=== PATIENT | female | born 1990 | race Caucasian/White ===

== ENCOUNTER 2016-04-21 10:20 | Inpatient (IN) | payer MEDICAID ==
[2015-09-01 19:35] VITALS: BMI 21.7
[2016-04-21] MEDS ORDERED: ONDANSETRON HCL 4 MG/2 ML VIAL IV ONE (10:53)
[2016-04-21] MEDS ORDERED: BUPIVACAINE 0.75%/DEXTROSE 8.25% AMPULE EPI ONE (10:53)
[2016-04-21] MEDS ORDERED: BUTORPHANOL 1 MG/ML VIAL IV PRN (11:11)
[2016-04-21] MEDS ORDERED: LR 500 ML IV PRN (11:11)
[2016-04-21 11:19] LABS: AUTOMATED BASOPHIL 0.1 % (0-2); AUTOMATED EOSINOPHIL 0.9 % (0-5); AUTOMATED LYMPH 11.4 % (17-44); AUTOMATED MONOCYTE 8.2 % (3-10); AUTOMATED NEUTROPHIL 79.4 % (45-76); MPV 7.7 fL (7.4-10.4)
[2016-04-21] MEDS ORDERED: OXYTOCIN 1,000 ML IV ONE ×2 (11:25→14:08)
[2016-04-21] MEDS ORDERED: LIDOCAINE 1% 30 ML VIAL (PRESERVATIVE FREE) ONE (11:25)
[2016-04-21] MEDS ORDERED: Vaccine Screening Complete SCH (12:00)
[2016-04-21] MEDS ORDERED: AMPICILLIN 2 GM in NS 100 ML IV ONE (12:00)
[2016-04-21] MEDS ORDERED: LR 1,000 ML IV SCH ×2 (12:00→13:00)
[2016-04-21] MEDS ORDERED: ONDANSETRON HCL 4 MG ODT TAB PO PRN (12:12)
[2016-04-21] MEDS ORDERED: LABETALOL 20 MG/4 ML SYRINGE IV PRN (12:12)
[2016-04-21] MEDS ORDERED: ONDANSETRON HCL 4 MG/2 ML VIAL IV PRN ×2 (12:12→14:08)
[2016-04-21] MEDS ORDERED: HYDROmorphone 1 MG INJECTION IV PRN ×2 (12:12)
[2016-04-21] MEDS ORDERED: hydrALAZINE 20 MG/ML VIAL IV PRN (12:12)
[2016-04-21] MEDS ORDERED: MEPERIDINE 25 MG/ML TUBEX IV PRN (12:12)
[2016-04-21] MEDS ORDERED: FENTANYL 100 MCG/2 ML VIAL IV PRN ×2 (12:12)
[2016-04-21] MEDS ORDERED: PROMETHAZINE 25 MG/ML VIAL IV PRN ×2 (12:12)
--- NOTE | 2016-04-21 12:12 | HISTPHYS ---
- HISTORY OF PRESENT ILLNESS Age: 26 Estimated Due Date: 05/09/16 Gestational Age: 37 : 1 Para: 0 Patient Presents to:: Labor & Delivery Presents for:: Leaking Fluid Current : No Complications, GBS + - REVIEW OF SYSTEMS Reports/Denies: Reports: Contractions, Leaking Fluid Pain: Reports: None - ALLERGIES Allergies Allergy/AdvReac Type Severity Reaction Status Date / Time No Known Allergies Allergy Verified 04/21/16 10:32 - CURRENT MEDICATIONS Home Medication List Vits W-Ca,Fe,FA(<1Mg) [] 1 each PO DIR 04/21/16 [History] - PAST MEDICAL HISTORY Reports: No Significant History - PAST SURGICAL HISTORY Reports: None - FAMILY HISTORY Family History: Noncontributory - SOCIAL HISTORY Smoking Status: Never smoker Marital Status: Employment: Employed - GENITOURINARY HISTORY HX : 1 Para: 0 Live Deliveries (# of pregnancies resulting in a live ): 0 - PHYSICAL EXAM Vital Signs:: Temperature: 97.6 F (04/21/16 10:36) HR: 117 (04/21/16 10:36) RR: 16 (04/21/16 10:36) BP: 140/90 (04/21/16 10:36) Pulse Ox: () GENERAL: Alert, Oriented, No Acute Distress HEENT: Normal CARDOVASCULAR/CHEST: Normal RESPIRATORY: Normal - CTA ABDOMEN: Gravid, Non-Tender, Soft Fundal Height (cm): 38 GENITOURINARY: Normal. negative: Lesions MUSCULOSKELETAL: Normal EXTERMITIES: Moves All Extremeties Dilation (cm): 1 Effacement (%): 25 Station: -3 Heart Rate: 145 Reactive Contractions: Irregular Membranes: SROM Amniotic Fluid: Clear - ASSESSMENT (ACTIVE PROBLEMS) (1) Term Acute Z34.80 - ENCOUNTER FOR SUPRVSN OF NORMAL , UNSP TRIMESTER (2) Active labor at term Acute [id number] - (3) Breech presentation of fetus Acute O32.1XX0 - MATERNAL CARE FOR BREECH PRESENTATION, UNSP - PLAN Admit Other Plan: 26 yo G1 at term presents with srom, in early labor. Exam reveals breech presentation. Discussed with patient finding and recommendation for LTCS. Will notify anesthesia, peds and proceed with plan.
--- NOTE | 2016-04-21 12:13 | SC.ANESPOS ---
Post-Anesthesia Note LOC: Fully Awake Post-Anesthesia Assessment: Awake, Returned to Baseline, Hemodynamically Stable , Pain Control Adequate Phase I & II Recovery Complete: Yes Apparent Anesthesia Complication: No : N - Vital Signs Blood Pressure: 140/90 Pulse: 117 Resp Rate: 16 Temp: 97.6 F
--- NOTE | 2016-04-21 12:13 | HIM.ANES ---
Anesthesia Evaluation & Plan - Focused Review of Systems Cardiac History: Yes: Hx Heart Murmur (since ), Hx Cardiac Disorders HEENT: Yes: Other HEENT Problems No: Hx Hearing Impairment, Cataracts, Cataract Removal, Glaucoma, Macular Degeneration, Hx Dysphagia, Temporomandibular Joint Disease (TMJ), Hx Deviated Septum, Hx Vision Problem, Hx Ear Problem Hx Other HEENT Problems: glasses Gastrointestinal: No: Hx Gastrointestinal Disorders Neurological/Musculoskeletal: No: Hx Neurological Disorders Psychological: Yes Hx Anxiety, No Hx Depression, Yes Hx Mental/Emotional Disorders, No Hx Bipolar Disorder Blood/Autoimmune: No: Hx Blood Transfusions, Hx Anemia, Hx AIDS, Hx Sickle Cell Disease Smoking Status: Never smoker Past Social History: Denies: Alcohol Use Surgical History: Yes: T&A No: Nasal - Focused Physical Exam Mallampati: Class II Thyromental Distance: Greater than 3 Cardiovascular/Chest: Normal Respiratory: Lungs clear Any problems with anesthesia, including nausea and vomiting?: No Any relatives with a history of Malignant Hyperthermia?: No Beta Milka given (if appropriate): N/A Other: CBC/BMP/Other 04/21/16 10:40 Allergies Allergy/AdvReac Type Severity Reaction Status Date / Time No Known Allergies Allergy Verified 04/21/16 10:32 Home Medications Medication Instructions Recorded Last Taken Type Vits W-Ca,Fe,FA(<1Mg) 1 each PO DIR 04/21/16 04/20/16 22:00 History [] Height and Weight Patient's height 5 ft 2 in Patient's weight 156 lb BMI 21.7 Vital Signs Temperature 97.6 F 04/21/16 12:13 Pulse Rate 117 04/21/16 12:13 Respiratory Rate 16 04/21/16 12:13 Blood Pressure 140/90 04/21/16 12:13 Pulse Oxygen Saturation - Anesthetic Plan Anesthesia Type: Spinal ASA Class: 2, E -: I have examined this patient and reviewed the medical record. The patient has been assessed prior to anesthesia. Risks and benefits of anesthesia and anesthetic technique options have been discussed and all questions answered. The patient accepts the risk and desires me to proceed with the planned anesthetic.
[2016-04-21] MEDS ORDERED: CEFAZOLIN 1 GM VIAL IV ONE (12:15)
[2016-04-21] MEDS ORDERED: LR 1,500 ML IV ONE (12:15)
[2016-04-21] MEDS ORDERED: FENTANYL 100 MCG/2 ML VIAL ONE (13:35)
[2016-04-21] MEDS ORDERED: LANOLIN OINTMENT 0.25 OZ TUBE TOP PRN (14:08)
[2016-04-21] MEDS ORDERED: SODIUM CHLORIDE 0.9% 3 ML FLUSH FLUSH PRN (14:08)
[2016-04-21] MEDS ORDERED: HYDROmorphone 50 ML IV PRN (14:08)
[2016-04-21] MEDS ORDERED: ZOLPIDEM TARTRATE 5 MG TAB PO PRN (14:08)
--- NOTE | 2016-04-21 14:11 | HIMOPRPT ---
DATE OF PROCEDURE: DATE OF PROCEDURE: 04/21/16 PREOPERATIVE DIAGNOSIS: 1. Intrauterine at [37 weeks]. 2. Breech presentation. 3. Active labor POSTOPERATIVE DIAGNOSIS: 1. Same PROCEDURE: Primary low transverse via Pfannenstiel incision. SURGEON: Yeny Rodriguez MD. ANESTHESIA: [spinal] FINDINGS: Vigorous [male] , [7] pounds [0] ounces with Apgars of [9] and [ 9]. COMPLICATIONS: None. ESTIMATED BLOOD LOSS: 400 mL. URINE OUTPUT: [400] mL of clear urine. PROCEDURE IN DETAIL: The patient was taken to the operating room where anesthesia was adequate at the time of skin check. At this time, a Pfannenstiel incision was made with scalpel carried down to the fascia. The fascia was nicked in midline and the incision extended laterally with Ray scissors. The fascia was elevated up, dissected off rectus muscles. Rectus muscles were midline. Peritoneum was identified and entered. Peritoneal incision was extended superiorly and inferiorly with good visualization of bladder. Bladder flap was created with blunt and sharp dissection. The lower uterine segment was incised in transverse fashion with scalpel and extended bluntly. The infant was delivered by breech extraction atraumatically. The nose and mouth were suctioned with bulb suction. Cord clamped and cut and infant handed off to awaiting tool engineer. Placenta was removed. The uterus was exteriorized and cleared of all clots. The uterine incision was closed with #1 chromic and second chromic was used for hemostasis. The uterus was returned to the abdomen and hemostasis was verified. Clots were removed from the gutters. The fascia was closed with 0 PDS. Subcuticular fat was irrigated with saline. Skin was closed with 4-0 monocryl in subcuticular fashion. Dermabond was applied to the skin site. Sponge, laps, and needle counts correct x2. The patient tolerated well.
--- NOTE | 2016-04-21 14:13 | OBDELNOTE ---
Delivery Note - Problem/Diagnosis (1) Term Status: Acute (2) Active labor at term Status: Acute (3) Breech presentation of fetus Status: Acute (4) delivery delivered Status: Acute (5) Single live Status: Acute (6) Single live Status: Acute - Admitting Diagnosis Reason for Visit: Leaking Fluid Admission Date: 04/21/16 Admission time: 10:39 Gestational Age: 37 - Procedures Procedure(s): Ultrasound, Non-Stress Test Labor Anesthesia/Analgesia: Spinal Anesthesia Date: 04/21/16 Delivery Presentation: Nelson Breech Episiotomy: None Laceration: None : Primary, Non-Scheduled Reason: Malpresentation Skin Incision: Pfannenstiel Uterine Incision: Low Transverse EBL: 400 Fluid: Clear Placenta: Manual Removal Description: Normal Cord: 3 Vessels - Data Sex: Male Weight: 3.175 kg (1min): 9 (5min): 9 Feeding Plans for : Bottle Plans Circumcision: Yes (in ofice) Complications: No Complications [place] to:: LDRP/Mother's Room - /Operative Complications /Op Complications: None Discharge Planning - REASON FOR ADMISSION Patient Presents to:: Labor & Delivery Reason for Visit: Leaking Fluid - DISCHARGE INSTRUCTIONS
--- NOTE | 2016-04-21 14:15 | PCM.DCS92 ---
<Yeny Rodriguez - Last Filed: 04/21/16 14:13> - Primary/Secondary Discharge Diagnoses (1) Term Acute Z34.80 - ENCOUNTER FOR SUPRVSN OF NORMAL , UNSP TRIMESTER (2) Active labor at term Acute [id number] - (3) Breech presentation of fetus Acute O32.1XX0 - MATERNAL CARE FOR BREECH PRESENTATION, UNSP single or unspecified fetus O32.1XX0 - Maternal care for breech presentation, not applicable or unspecified (4) delivery delivered Acute O82 - ENCOUNTER FOR DELIVERY WITHOUT INDICATION (5) Single live Acute Z37.0 - SINGLE LIVE (6) Single live Acute Z37.0 - SINGLE LIVE - HOSPITAL COURSE /Op Complications: None - DISCHARGE INSTRUCTIONS Discharge Disposition: Home Discharge Condition: Good Cognitive Discharge Status: Unimpaired Fuctional Discharge Status: Independent Patient Leaving with Prescriptions?: Yes Home Medications/ New Prescriptions: New Ibuprofen Tablet [Motrin] 800 mg PO TID #30 tab Oxycodone Immediate Release [Oxycodone Immediate Release (OxyIR)] 5 mg PO Q4H PRN #30 tab PRN Reason: Pain Continue Vits W-Ca,Fe,FA(<1Mg) [] 1 each PO DIR Referrals: Yeny Rodriguez MD [Staff Physician] - Listed Time - Diet Diet at Discharge: Regular - Activity Activity: No Heavy Lifting, Pelvic Rest, No Driving No Driving for: 2 weeks - Instructions Call Physician for: Sudden/Sever Chest Pain, Foul Smelling Discharge, Pain/ Redness in Calf/Leg, Temperature Above 100.4, Drainiage from Wound - DC Summary Notes Discharge Medications: *See "Discharge Medication List" for a complete list of Home Medications and Discharge Medications.* Obstetric Hospital Course - Admitting Diagnosis Reason for Visit: Leaking Fluid Admission Date: 04/21/16 Admission time: 10:39 Gestational Age: 37 - Procedures Procedure(s): Ultrasound, Non-Stress Test Labor Anesthesia/Analgesia: Spinal Anesthesia Date: 04/21/16 Delivery Presentation: Nelson Breech Episiotomy: None Laceration: None : Primary, Non-Scheduled Skin Incision: Pfannenstiel Uterine Incision: Low Transverse EBL: 400 Fluid: Clear Placenta: Manual Removal Description: Normal Cord: 3 Vessels - Data Infant Sex: Male Weight: 3.175 kg (1min): 9 (5min): 9 Feeding Plans for : Bottle Plans Circumcision: Yes (in ofice) Complications: No Complications to:: LDRP/Mother's Room - /Operative Complications /Op Complications: None <Garima Lennon - Last Filed: 04/23/16 08:07> - Primary/Secondary Discharge Diagnoses (1) care following delivery Acute Z39.2 - ENCOUNTER FOR ROUTINE FOLLOW-UP - Incision Incision, Lacerations, or Tears: Yes - DC Summary Notes Discharge Medications: *See "Discharge Medication List" for a complete list of Home Medications and Discharge Medications.*
[2016-04-21] MEDS ORDERED: Pharmacy Order Set Alert SCH (15:00)
[2016-04-21] MEDS ORDERED: AMPICILLIN 1 GM in NS 100 ML IV SCH (16:00)
[2016-04-21] MEDS: LR 1,000 ML IV SCH (19:48)
[2016-04-21] MEDS: IBUPROFEN 800 MG TAB PO SCH (20:25)
[2016-04-22] MEDS: IBUPROFEN 800 MG TAB PO SCH ×5 (02:29→22:36)
[2016-04-22] MEDS: LR 1,000 ML IV SCH (03:53)
[2016-04-22] MEDS: SODIUM CHLORIDE 0.9% 3 ML FLUSH FLUSH SCH ×3 (06:34→18:30)
[2016-04-22] MEDS ORDERED: SODIUM CHLORIDE 0.9% 3 ML FLUSH FLUSH PRN (09:24)
--- NOTE | 2016-04-22 09:25 | OBGYNPROG ---
- Subjective Post Day: 1 Reports: Ambulating, Out of Bed, Tolerating Regular Diet. Denies: Complaints - Objective Vital Signs: Temperature: 98.4 F (04/22/16 06:22) HR: 88 (04/22/16 06:22) RR: 16 (04/22/16 06:33) BP: 130/68 (04/22/16 06:22) Pulse Ox: 100 (04/21/16 14:58) Laboratory Results - last 24 hr 04/21/16 04/21/16 04/21/16 10:40 10:40 12:15 WBC 15.3 H RBC 3.98 L Hgb 11.2 L Hct 33.8 L MCV 85 MCH 28.2 MCHC 33.2 RDW 14.4 Plt Count 329 MPV 7.7 Neut % (Auto) 79.4 H Lymph % (Auto) 11.4 L Stokes % (Auto) 8.2 Eos % (Auto) 0.9 Baso % (Auto) 0.1 Absolute Neuts (auto) 12.09 H Absolute Lymphs (auto) 1.68 Blood Type O POSITIVE Cancelled Antibody Screen Negative Cancelled 04/22/16 06:58 WBC RBC Hgb 8.7 L D Hct 26.1 L MCV MCH MCHC RDW Plt Count MPV Neut % (Auto) Lymph % (Auto) Stokes % (Auto) Eos % (Auto) Baso % (Auto) Absolute Neuts (auto) Absolute Lymphs (auto) Blood Type Antibody Screen General: Alert, Oriented, No Acute Distress HEENT: Normal Cardiovascular/Chest: Normal ABDOMEN: Soft Abdominal Incision: Incision Clean/Dry/Intact MUSCULOSKELETAL: Normal EXTERMITIES: Moves All Extremeties. Denies: Edema OBGYN Progress Note - ASSESSMENT (1) Term Status: Acute Code(s): Z34.80 - ENCOUNTER FOR SUPRVSN OF NORMAL , UNSP TRIMESTER (2) Active labor at term Status: Acute Code(s): [id number] - (3) Breech presentation of fetus Status: Acute Code(s): O32.1XX0 - MATERNAL CARE FOR BREECH PRESENTATION, UNSP Qualifiers: Fetus number: single or unspecified fetus Qualified Code(s): O32.1XX0 - Maternal care for breech presentation, not applicable or unspecified (4) delivery delivered Status: Acute Code(s): O82 - ENCOUNTER FOR DELIVERY WITHOUT INDICATION (5) Single live Status: Acute Code(s): Z37.0 - SINGLE LIVE (6) Single live Status: Acute Code(s): Z37.0 - SINGLE LIVE - PLAN Routine Care, Advance Diet, Ambulate, Discontinue Indwelling Catheter , 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
[2016-04-22] MEDS: OXYCODONE HCL 5 MG TABLET PO PRN ×3 (10:29→22:36)
[2016-04-22] MEDS: Docusate Sodium 100 MG CAP PO SCH (16:02)
[2016-04-22] MEDS ORDERED: SODIUM CHLORIDE 0.9% 3 ML FLUSH FLUSH SCH (18:00)
[2016-04-23] MEDS: OXYCODONE HCL 5 MG TABLET PO PRN ×2 (02:39→09:01)
[2016-04-23] MEDS: IBUPROFEN 800 MG TAB PO SCH (04:47)
[2016-04-23 06:35] VITALS: BP 120/61; PULSE 71; TEMP 98.3
--- NOTE | 2016-04-23 08:06 | OBGYNPROG ---
- Subjective Post Day: 2 Post Op Day: 2 Reports: Ambulating, Out of Bed, Tolerating Regular Diet, Voiding Freely, Passing Flatus, Light Bleeding. Denies: Complaints, Bowel Movement(s), Nausea, Vomitting, Chest Pain, Shortness of Breath Pain: Reports: Well Managed, Abdominal, Incision - Objective Vital Signs: Last Vital Signs Temp 98.3 F 04/23/16 06:35 Pulse 71 04/23/16 06:35 Resp 18 04/23/16 06:35 BP 120/61 04/23/16 06:35 Pulse Ox 100 04/21/16 14:58 General: Alert, Oriented, No Acute Distress ABDOMEN: Non-Distended, Soft, Tender (mild) Abdominal Incision: Dermabond Intact. negative: Redness, Drainage, Ecchymotic Fundus: U - 1, Firm Bladder: Voiding & Emptying OBGYN Progress Note - ASSESSMENT (1) care following delivery Status: Acute Code(s): Z39.2 - ENCOUNTER FOR ROUTINE FOLLOW-UP - PLAN Routine Care, Discharge
[2016-04-23] MEDS: Docusate Sodium 100 MG CAP PO SCH (08:57)
== END 2016-04-23 10:54 | disposition home or self-care (01) | DRG 766 ==
LOC: MASU 10:20
PROVIDERS: ADMIT Obstetrics & Gynecology; ATTEND Obstetrics & Gynecology
PROC: 10D00Z1 Extraction of Products of Conception, Low, Open Approach (ICD-10-PCS; principal; 2016-04-21 12:30)
DX: O32.1XX0 Maternal care for breech presentation, not applicable or unspecified (principal); O99.824 Streptococcus B carrier state complicating childbirth; Z3A.37 37 weeks gestation of pregnancy; Z37.0 Single live birth
CPT/HCPCS: 76815; 81002; 83986; 85014; 85018; 85025; 86592; 86850; 86900; 86901; 96360; 96361; 96365; 96366; J0290; J0690; J1170; J2001; J2405; J2590; J3010; J3490; J7030; S0020